=== PATIENT | male | born 1980 | race Caucasian/White ===

== ENCOUNTER 2020-03-07 05:44 | Day surgery (SDC) | payer OTHER ==
[2020-03-01 14:21] VITALS: BMI 45.1
[2020-03-07] MEDS ORDERED: EPINEPHrine 1:1,000 1 MG/1 ML - 30ML VIAL (INJECTION) ONE (07:15)
[2020-03-07] MEDS ORDERED: MIDAZOLAM HCL 2 MG/2 ML SINGLE DOSE VIAL ONE (07:15)
[2020-03-07] MEDS ORDERED: PROPOFOL 20 ML ONE (07:15)
[2020-03-07] MEDS ORDERED: LIDOCAINE HCL/PF 2% SDV 5ML VIAL ONE (07:15)
[2020-03-07] MEDS ORDERED: BUPIVACAINE HCL/PF 0.25% (2.5MG/ML) 10 ML VIAL ONE (07:15)
--- NOTE | 2020-03-07 07:40 | OP ---
Operative Note - Note: Operative Date: 03/07/20 Pre-Operative Diagnosis: Right knee medial and lateral meniscus tears Operation: Right knee partial medial and lateral meniscectomies Post-Operative Diagnosis: Same as Pre-op Surgeon: Uday Trinh [employer] [place] Mechanic: Ame Kearns Anesthesia: General Operative Report Dictated: Yes
[2020-03-07] MEDS ORDERED: ceFAZolin SODIUM 1 GM VIAL ONE (07:48)
[2020-03-07] MEDS ORDERED: DEXAMETHASONE SOD PHOSPHATE 4 MG/1 ML VIAL ONE (07:49)
[2020-03-07] MEDS ORDERED: ONDANSETRON 4 MG/2 ML VIAL ONE (07:49)
[2020-03-07] MEDS ORDERED: KETOROLAC TROMETHAMINE 30 MG/1 ML VIAL ONE (08:01)
[2020-03-07] MEDS ORDERED: BUPIVACAINE HCL/PF 0.25% (2.5MG/ML) 10 ML VIAL IJ ONE (08:06)
[2020-03-07] MEDS ORDERED: oxyCODONE HCL 5 MG TABLET PO PRN ×2 (09:27)
[2020-03-07] MEDS ORDERED: ONDANSETRON 4 MG/2 ML VIAL IVPUSH PRN (09:27)
[2020-03-07] MEDS ORDERED: LACTATED RINGERS SOLUTION 1,000 ML IV SCH (09:30)
[2020-03-07 10:06] VITALS: TEMP 97.5
[2020-03-07 10:46] VITALS: BP 138/75; PULSE 70
--- NOTE | 2020-03-08 14:23 | OP ---
DATE OF OPERATION: 03/07/2020 POSTOPERATIVE DIAGNOSIS: Right knee medial and lateral meniscal tears. POSTOPERATIVE DIAGNOSIS: Right knee medial and lateral meniscal tears. PROCEDURE: Right knee arthroscopy with partial medial, partial lateral meniscectomy. SURGEON: Uday Trinh MD NATIONAL RECRUITER: ASHWIN Clay, whose skillful assistance was necessary for the safe and timely performance of this procedure. Ms. Kearns was available for traction, assistance driving the camera as well as the passage of arthroscopic instrumentation. ANESTHESIA: General. POSTOPERATIVE CONDITION: Stable. COMPLICATIONS: None. INDICATIONS: This is a pleasant gentleman who was suffering from right knee pain. He was found to have medial and lateral meniscal tears on MRI. Treatment options were discussed including nonoperative versus operative management. Operative risks were including bleeding, infection osteoarthritis, medical risks such as heart attack, stroke, DVT, PE, and . I addressed the use of perioperative antibiotic and DVT prophylaxis. I addressed all of the patient's questions and concerns. He voiced understanding and elected to proceed. DESCRIPTION OF PROCEDURE: The patient was brought to the operating room where general anesthesia was administered. The right lower extremity was then prepped and draped in the usual sterile fashion. A preoperative dose of antibiotics was given, and the usual time-out procedure was performed. The knee was then marked out. The lateral portal was now established using 11 blade. The arthroscope was passed into the knee. Examination of the patellofemoral joint demonstrated no significant articular wear. Passing arthroscope into the notch demonstrated intact ACL and PCL. The arthroscope was now passed in the medial compartment. A medial portal was established under spinal needle localization. Medial compartment was now inspected. There were no significant articular lesions. The meniscus was inspected demonstrating a complex tear involving the posterior horn and body. Utilizing meniscal biter as well as a shaver, this was debrided down to a stable base. The arthroscope was now passed into the lateral compartment. Here, an inner rim radial tear was noted at the junction of the posterior horn and body. Utilizing meniscal biter and shaver, this was debrided down as well. No significant articular wear was noted here as well. The camera was then flipped into the other portal, and some additional debridement was carried out on the more anterior aspect of the medial tear. The lateral tear required no additional debridement. At this point, the excess fluid was withdrawn from the joint. The portals were sutured using 3-0 nylon. Sterile dressings were placed. The patient was extubated and transferred to the recovery room in stable condition. Efrain [id number]
== END 2020-03-07 11:40 | disposition home or self-care (01) ==
LOC: FASU 05:44
PROVIDERS: ATTEND Orthopaedic Surgery Sports Medicine
PROC: 0SBC4ZZ Excision of Right Knee Joint, Percutaneous Endoscopic Approach (ICD-10-PCS; 2020-03-07)
PROC: 0SBC4ZZ Excision of Right Knee Joint, Percutaneous Endoscopic Approach (ICD-10-PCS; principal; 2020-03-07 08:00)
DX: S83.241A Other tear of medial meniscus, current injury, right knee, initial encounter (principal); S83.281A Other tear of lateral meniscus, current injury, right knee, initial encounter; X58.XXXA Exposure to other specified factors, initial encounter; Y93.9 Activity, unspecified; Y92.9 Unspecified place or not applicable
CPT/HCPCS: 94760